=== PATIENT | female | born 1985 | race Caucasian/White ===

== ENCOUNTER 2018-04-02 11:12 | Emergency (ER) | payer BC, OTHER ==
[~2018-04-02] VITALS: Ht 172.7 cm; Wt 72.6 kg
[~2018-04-02 11:12] MED LIST: ASCO500; BUSP15 PO; BUTISOL SODIUM; Ceftin500 MG PO; ERGO400 PO; ESOM20 PO; Imitrex100 MG PO; LORA.5 PO; PREN-16 PO; PROM25; PROM25S PR; QUET200 PO; SERT100 PO; TOPI25; VENL150ER PO
[2018-04-02] MEDS ORDERED: TOPI100 PO (11:32)
[2018-04-02] MEDS ORDERED: Percocet 5-3251 EACH PO (12:32)
[2018-04-02] MEDS ORDERED: Valium5 MG PO (12:32)
== END 2018-04-02 12:41 | disposition home or self-care (01) ==
LOC: ER 11:12
DX: M62.838 Other muscle spasm (principal); Z88.2 Allergy status to sulfonamides; Z88.1 Allergy status to other antibiotic agents; Z79.899 Other long term (current) drug therapy; Z87.891 Personal history of nicotine dependence
CPT/HCPCS: 96372; 99283; J1885

== ENCOUNTER → 2020-06-20 | Outpatient (CLI) | payer BC ==
[~2020-06-20] MED LIST changes: +Percocet 5-3251 EACH PO; +TOPI100 PO; +Valium5 MG PO
[2020-06-21 11:07] LABS: Candida species (DNA Probe) Negative (NEGATIVE); G. vaginalis (DNA Probe) Negative (NEGATIVE); T. vaginalis (DNA Probe) Negative (NEGATIVE)
== END | disposition home or self-care (01) ==
LOC: LAB 09:45 → LAB SHORT 09:45
PROVIDERS: Obstetrics & Gynecology
DX: N76.0 Acute vaginitis (principal)
CPT/HCPCS: 87480; 87510; 87660

== ENCOUNTER → 2020-12-03 | Outpatient (CLI) | payer BC ==
[~2020-12-03] MED LIST changes: +BUTRANS1 EAC9 TD; +CODACE30 PO; +DESV50; +MORP15ER; +NAPR500 PO; +Nexium40 MG PO; +OXYC5; +PANT40; +PROM25 PO
== END ==
LOC: LAB SHORT 19:10 → LAB 19:10
DX: N39.0 Urinary tract infection, site not specified (principal)
CPT/HCPCS: 87086

== ENCOUNTER → 2025-05-29 | Outpatient (CLI) | payer OTHER | LOC: LAB SHORT 11:57 → LAB 11:57 | PROVIDERS: Family Medicine | DX: Z12.4 Encounter for screening for malignant neoplasm of cervix (principal) | CPT/HCPCS: G0123 ==

== ENCOUNTER 2025-09-07 13:56 | Emergency (ER) | payer OTHER ==
[~2025-09-07] VITALS: Ht 172.7 cm; Wt 88.5 kg
[2025-09-07 14:25] LABS: BASOPHILS ABSOLUTE AUTO 0.08 K/mm3 (0.00-0.23); BASOPHILS PERCENT AUTO 1 % (0-2); EOSINOPHILS ABSOLUTE AUTO 1.58 K/mm3 (0.00-0.68); EOSINOPHILS PERCENT AUTO 16 % (0-6); Hematocrit 38.3 % (33.0-51.0); Hemoglobin 13.3 g/dL (11.5-16.0); IMMATURE GRAN ABSOLUTE AUTO 0.03 K/mm3 (0.00-0.10); IMMATURE GRAN PERCENT AUTO 0 % (0-1); LYMPHOCYTES ABSOLUTE AUTO 2.22 K/mm3 (0.84-5.20); LYMPHOCYTES PERCENT AUTO 23 % (21-46); MONOCYTES ABSOLUTE AUTO 0.47 K/mm3 (0.16-1.47); MONOCYTES PERCENT AUTO 5 % (4-13); Mean Corpuscular HGB Conc 34.7 g/dL (31.5-36.5); Mean Corpuscular Volume 86 fL (80-100); NEUTROPHILS ABSOLUTE AUTO 5.24 K/mm3 (1.96-9.15); NEUTROPHILS PERCENT AUTO 55 % (41-73); NRBC ABSOLUTE 0.00 K/mm3 (0.00-0.02); NRBC Auto 0.0 /100 WBC (0.0-0.2); Platelet Count 406 K/mm3 (150-400); RDW Coefficient Variation 13.4 % (11.7-14.2); RDW Standard Deviation 41.3 fL (35.1-46.3)
[2025-09-07 14:53] LABS: Alanine Aminotransfer (ALT/SGP 19.0 U/L (12-78); Albumin, Blood 3.8 g/dL (3.4-5.0); Albumin/Globulin Ratio 1.1 (0.8-1.8); Anion Gap 9.0 mmol/L (3-11); Aspartate Aminotrans (AST/SGOT 17.0 U/L (12-37); Bilirubin, Total 0.4 mg/dL (0.1-1.0); Blood Urea Nitrogen 16.0 mg/dL (8-24); CO2, Blood 21.0 mmol/L (21-32); Calcium, Blood 8.6 mg/dL (8.5-10.1); Chloride, Blood 112.0 mmol/L (98-108); Creatinine, Blood 0.83 mg/dL (0.40-1.00); Globulin, Blood 3.6 g/dL (2.2-4.0); Glucose, Blood 109.0 mg/dL (70-99); Potassium, Blood 3.5 mmol/L (3.5-5.5); Sodium, Blood 138.0 mmol/L (136-145); Total Protein, Blood 7.4 g/dL (6.4-8.2)
[2025-09-07] MEDS ORDERED: HYDHCL25 (15:44)
[2025-09-07] MEDS ORDERED: HYDACE25S PR (17:29)
[2025-09-07 17:30] VITALS: BP 150/98
== END 2025-09-07 17:40 | disposition home or self-care (01) ==
LOC: ER 13:56
PROVIDERS: Student in an Organized Health Care Education/Training Program
DX: K64.8 Other hemorrhoids (principal); G43.909 Migraine, unspecified, not intractable, without status migrainosus; Z87.891 Personal history of nicotine dependence; Z79.899 Other long term (current) drug therapy; Z88.1 Allergy status to other antibiotic agents
CPT/HCPCS: 74177; 80053; 84703; 85025; 86850; 86900; 86901; 99285-25; Q9967